=== PATIENT | male | born 1985 | race Caucasian/White ===

== ENCOUNTER 2022-03-02 12:26 | Emergency (ER) | payer SELFPAY ==
[2022-03-02] MEDS ORDERED: ZIPRASIDONE MESYLA 20 MG/VIAL IM ONE (12:43)
[2022-03-02] MEDS ORDERED: WATER FOR INJ,STERILE 10 ML ONE (12:43)
[2022-03-02] MEDS ORDERED: NA CHLORIDE 0.9% 1,000 ML ONE (14:03)
[2022-03-02 14:09] LABS: Absolute Lymphocytes (CBC) 1.4 K/uL (0.7-4.9); Hematocrit 47.7 % (39.6-49.0); Lymphocytes % 13.9 % (15.3-44.8); MPV 7.4 fL (7.6-11.3); RBC Red Blood Cell Count 5.42 M/uL (4.33-5.43)
[2022-03-02 14:48] LABS: ALT/SGPT 31 U/L (12-78); AST/SGOT 17 U/L (15-37); Albumin 3.6 g/dL (3.4-5.0); Alkaline Phosphatase 69 U/L (45-117); BUN Blood Urea Nitrogen 14 mg/dL (7-18); Bicarbonate 24 mmol/L (21-32); Bilirubin Total 0.1 mg/dL (0.2-1.0); Creatine Phosphokinase 155 U/L (39-308); Glomerular Filtration Rate 92 ml/min (=/>90); Glucose Level 109 mg/dL (74-106); Magnesium 2.2 mg/dL (1.8-2.4); Potassium 4.1 mmol/L (3.5-5.1); Protein, Total 7.3 g/dL (6.4-8.2); Sodium Level 137 mmol/L (136-145)
[2022-03-02 14:49] LABS: Troponin High Sensitivity < 3.0 pg/mL (<58.9)
[2022-03-02 15:10] LABS: Urine Blood Negative (Negative); Urine Glucose Negative (Negative); Urine Protein Negative (Negative); Urine Specific Gravity <=1.005 (1.005-1.030); Urine pH 5.5 (5.0-7.0)
[2022-03-02 15:21] LABS: Urine Mucus Slight /HPF (None Seen)
[2022-03-02 15:32] LABS: Barbiturates NEGATIVE (NEGATIVE); Benzodiazepines NEGATIVE (NEGATIVE); Cocaine NEGATIVE (NEGATIVE); METHAMPHETAM POSITIVE (NEGATIVE); Methadone NEGATIVE (NEGATIVE); Opiates NEGATIVE (NEGATIVE); Phencyclidine NEGATIVE (NEGATIVE); THC Cannibis NEGATIVE (NEGATIVE)
--- NOTE | 2022-03-02 15:43 | EDPHYS ---
Physician Documentation [facility] Name: Humberto Huerta Age: 36 yrs Sex: Male : 1985 Arrival Date: 03/02/2022 Time: 12:43 Bed 14 Private MD: ED Physician Monet Thakkar HPI: 03/02 12:54 This 36 yrs old Male presents to ER via EMS with complaints of Possible Overdose. sd2 12:54 56-year-old male presents via EMS with chief complaint of altered mental status and sd2 possible overdose. Patient is known to be HIV positive by the family but otherwise, history is limited. Family reported the patient is very secretive with them and they are unsure what the patient might of taken. The patient arrives agitated and aggressive and not wanting to answer questions. He did require physical and chemical restraints initially to prevent harm to staff. Once the patient was able to be de-escalated, he does admit to using GBL which he states is a precursor to GHB. He denies using any other drugs or alcohol.. Historical: - Allergies: 12:53 No Known Allergies; tw2 - PMHx: 12:53 HIV +; tw2 14:09 Drug abuse; tw2 - Immunization history:: Adult Immunizations. - Social history:: Smoking status: . ROS: 12:54 Unable to obtain ROS due to altered mental status. sd2 Exam: 12:54 Constitutional: This is a well developed, well nourished patient who is awake, alert, sd2 agitated and combative Head/Face: Normocephalic, atraumatic. Eyes: EOMI, normal conjunctiva bilaterally Chest/axilla: Normal chest wall appearance and motion. Nontender with no deformity. Cardiovascular: Tachycardic rate and regular rhythm with a normal S1 and S2. No gallops, murmurs, or rubs. 2+ distal pulses. Respiratory: Lungs have equal breath sounds bilaterally, clear to auscultation and percussion. No rales, rhonchi or wheezes noted. No increased work of breathing, no retractions or nasal flaring. Abdomen/GI: Soft, non-tender, with normal bowel sounds. No guarding or rebound. No evidence of tenderness throughout. Skin: Warm, dry with normal turgor. Normal color with no rashes, no lesions, and no evidence of cellulitis. MS/ Extremity: Pulses equal, no cyanosis. Neurovascular intact. Full, normal range of motion. Ambulatory without difficulty. Neuro: Awake and alert, answering some questions but overall non-cooperative. Speaking in sentences that make sense. Moves all 4 extremities with good strength. Psych: Awake, alert, agitated and combative 14:00 ECG was reviewed by the Attending Physician. NSR, rate 87, no STEMI criteria, early sd2 repolarization present Vital Signs: 12:26 BP 184 / 104; Pulse 126; Resp 19; Temp 98.1(TE); Pulse Ox 96% on R/A; tw2 12:53 Weight 68.04 kg (R); tw2 13:23 BP 131 / 82; Pulse 95; Resp 14; Pulse Ox 96% on R/A; tw2 14:05 BP 136 / 86; Pulse 74; Resp 16; Pulse Ox 100% on R/A; tw2 14:50 BP 125 / 78; Pulse 76; Resp 16; Pulse Ox 100% on R/A; tw2 15:43 BP 132 / 81; Pulse 80; Resp 16; Pulse Ox 99% on R/A; tw2 MDM: 12:45 Patient medically screened. sd2 12:54 Differential diagnosis: Ingestion/exposure to drugs/alcohol polypharmacy, over sd2 medication, hypoglycemia, closed head injury, intracranial hemorrhage, among others. Data reviewed: vital signs, nurses notes, EMS record. 15:39 Data reviewed: lab test result(s), EKG. Counseling: I had a detailed discussion with sd2 the patient and/or guardian regarding: the historical points, exam findings, and any diagnostic results supporting the discharge/admit diagnosis, lab results, the need for outpatient follow up, to return to the emergency department if symptoms worsen or persist or if there are any questions or concerns that arise at home, Drug cessation. Medical screen evaluation completed. [facility] emergency medical condition absent. ED course: Labs reviewed. Labs grossly WNCL. EKG with no acute abnormalities. UA without infection. UDS positive for amphetamines. Tox screens otherwise negative. Poison Control was contacted and recommended obs until patient returned to mental baseline. Pt is now awake, alert and oriented x4 answering all questions appropriately. Reports using GBL and has used previously but took more than normal today. Reports he does not use it often and that sometimes it does come laced with methamphetamines as well. Pt is back to his mental baseline. Family at confirms this as well and is comfortable with taking him home. He is resting comfortably with stable VS exhibiting no signs of agitation. Counseled on cessation of use and hazards of use. Verbalizes understanding of discharge plan and strict return precautions. . 03/02 12:47 Order name: CBC with Diff; Complete Time: 14:16 sd2 03/02 12:47 Order name: CMP; Complete Time: 15:07 sd2 03/02 12:47 Order name: Magnesium; Complete Time: 15:07 sd2 03/02 12:47 Order name: Troponin High Sensitivity; Complete Time: 15:07 sd03/02 12:47 Order name: Salicylate; Complete Time: 14:47 sd2 03/02 12:47 Order name: Acetaminophen; Complete Time: 15:07 sd2 03/02 12:47 Order name: Ethanol; Complete Time: 14:47 sd2 03/02 12:47 Order name: Urine Microscopic Only; Complete Time: 15:33 sd2 03/02 12:47 Order name: Urine Drug Screen; Complete Time: 15:33 sd2 03/02 12:47 Order name: CK; Complete Time: 15:07 sd2 03/02 15:10 Order name: Urine Dipstick-Ancillary; Complete Time: 15:33 EDMS 03/02 12:47 Order name: EKG - Nurse/Tech; Complete Time: 13:59 sd2 03/02 12:47 Order name: Urine Dipstick-Ancillary (obtain specimen); Complete Time: 15:11 sd2 03/02 13:20 Order name: IV Start; Complete Time: 13:59 tw2 03/02 14:00 Order name: Restraint:Violent/Self Destructive (Adult:18yo or >); Complete Time: 14:00 tw2 Administered Medications: 12:35 Drug: Geodon (ziprasidone) 20 mg Route: IM; Site: right vastus lateralis; tw2 13:10 Follow up: Response: Marked relief of symptoms tw2 14:00 Drug: NS 0.9% 1000 ml Route: IV; Rate: 1 bolus; Site: right forearm; tw2 15:00 Follow up: Response: No adverse reaction; IV Status: Completed infusion; IV Intake: tw2 1000ml Disposition: 15:45 Chart complete. sd2 Disposition Summary: 03/02/22 15:43 Discharge Ordered Location: Home sd2 Problem: new sd2 Symptoms: have improved sd2 Condition: Stable sd2 Diagnosis - Other psychoactive substance abuse, uncomplicated sd2 - Restlessness and agitation sd2 Followup: sd2 - With: Private Physician - When: 2 - 3 days - Reason: Recheck today's complaints, Continuance of care, Re-evaluation by your physician Discharge Instructions: - Discharge Summary Sheet sd2 - Substance Use Disorder sd2 - Supporting Someone With Substance Use Disorder sd2 Forms: - Medication Reconciliation Form sd2 - Thank You Letter sd2 - Antibiotic Education sd2 - Prescription Opioid Use sd2 Signatures: Dispatcher [employer] EDMS Nichole Collier RN RN tw2 Monet Thakkar MD MD sd2 Corrections: (The following items were deleted from the chart) 14:58 12:48 Head Brain Wo Cont+CT.RAD.BRZ ordered. EDMS EDMS 15:10 14:00 Kim ordered. tw2 tw2
--- NOTE | 2022-03-02 15:43 | ER ---
Nurse's Notes [facility] Name: Humberto Huerta Age: 36 yrs Sex: Male : 1985 Arrival Date: 03/02/2022 Time: 12:43 Bed 14 Private MD: Diagnosis: Other psychoactive substance abuse, uncomplicated;Restlessness and agitation Presentation: 03/02 12:26 Chief complaint: EMS states: pts mother states he possibly consumed some phenobarbital, tw2 he visits about every 2 years and is very private about his hx. HIV+. we gave narcan no changes. vs stable. Coronavirus screen: At this time, the client does not indicate any symptoms associated with coronavirus-19. Ebola Screen: Patient denies travel to an Ebola-affected area in the 21 days before illness onset. Initial Sepsis Screen: Does the patient meet any 2 criteria? HR > 90 bpm. No. Patient's initial sepsis screen is negative. Does the patient have a suspected source of infection? No. Patient's initial sepsis screen is negative. Risk Assessment: Do you want to hurt yourself or someone else? Patient reports no desire to harm self or others. Note pt combative, swinging, kicking and spitting. CODE alejandro called. charge nurse, 2 nurses, MD, nurse practitioner and 2 ems [address] pt in restraints for pt and staff safety at time. Note pt pulled IV out while actively resisting ems and moving pt, bleeding controlled via pressure dressing and coban at this time. Onset of symptoms was March 02, 2022. 12:26 Acuity: SCOT 2 tw2 12:26 Method Of Arrival: EMS: [facility] tw2 12:45 Note pt states he "took GBL 4mg the precursor to GHB". provider notified. tw2 12:56 Care prior to arrival: Medication(s) given: Normal saline infusion, 1000 mL, narcan tw2 given to pt per EMS. Triage Assessment: 12:26 General: Appears Behavior is combative, uncooperative, pt spitting and pulling at all tw2 ems monitoring devices. noted wet shorts at this time. pt appears to have urinated on himself.. 12:55 Neuro: Level of Consciousness is confused, Oriented to person. Cardiovascular: tw2 Capillary refill < 3 seconds Patient's skin is warm and dry. Respiratory: Airway is patent Trachea midline Respiratory effort is even, unlabored, Respiratory pattern is regular, symmetrical. 15:50 Pain: Denies pain. tw2 Historical: - Allergies: 12:53 No Known Allergies; tw2 - PMHx: 12:53 HIV +; tw2 14:09 Drug abuse; tw2 - Immunization history:: Adult Immunizations. - Social history:: Smoking status: . Screenin:02 Abuse screen: Denies threats or abuse. Nutritional screening: No deficits noted. tw2 Tuberculosis screening: No symptoms or risk factors identified. Fall Risk Secondary diagnosis (15 points) impaired mobility. Assessment: 12:52 Reassessment: pts sister and mother are at bedside at this time. pt is calm and tw2 answering appropriate. pt cooperative at this time. one arm restraint loosened to allow pt to use urinal at this time. family members at bedside. 12:56 Reassessment: pts mother poured pts urine down the drain at this time. tw2 13:05 Reassessment: pts sister Maddy discussing with md about pts wishes to go home and tw2 sleep it off and is oriented. 13:10 Reassessment: pt drowsy responds to sternal rub at this time, cooperative with pts tw2 sister and mother at bedside. 13:24 Reassessment: spoke with Christina watters/Poison control CASE #[id number]/ watch for WELDING MACHINE OPERATOR/TENDER and tw2 respiratory depressiong, drowsiness, hypotension, hypothermia. recommend tox labs, cath for urine for UDS, and NS fluids. observe until baseline. 13:46 Reassessment: pts sister reports "he is a republican person and take drugs daily per my tw2 other sister, not sure what all he takes". 14:08 Reassessment: Patient and/or family updated on plan of care and expected duration. Pain tw2 level reassessed. pt NAD, appears to be sleeping at this time, sister at bedside at thistime. 14:50 Reassessment: Patient and/or family updated on plan of care and expected duration. Pain tw2 level reassessed. pt appears to be sleeping at this time. 15:00 Reassessment: setting up to begin straight cath for urine sample at this time. pt tw2 states "cant i just pee in front of you", provider notified and agreeable. pt given a urinal and able to urinate at this time. Hina Kern serves as electrical installation supervisor for urine collection. 15:34 Reassessment: Patient appears in no apparent distress at this time. Patient and/or tw2 family updated on plan of care and expected duration. Pain level reassessed. pt arousable by name. 15:51 Reassessment: Patient appears in no apparent distress at this time. Patient and/or tw2 family updated on plan of care and expected duration. Pain level reassessed. Patient is alert, oriented x 3, equal unlabored respirations, skin warm/dry/pink. Overdose: 15:13 [place] Suicide Severity Screening: "In the past month, have you wished you were tw2 or wished you could go to sleep and not wake up?" Patient responds "no." "In the past month, have you actually had any thoughts of killing yourself?" Patient responds "no." "In your lifetime, have you ever done anything, started to do anything, or prepared to do anything to end your life?" Patient responds "yes." Patient reports suicidal intent occurred greater than 3 months prior. 15:16 Patient took GBL "to get high". tw2 15:17 [place] Suicide Severity Screening: "In the past month, have you wished you were tw2 or wished you could go to sleep and not wake up?" Patient responds "yes." Based off client's responses, additional C-SSRS screening questions required. 15:50 [place] Suicide Severity Screening: "In the past month, have you actually had any tw2 thoughts of killing yourself?" Patient responds "yes." Based off client's responses, additional C-SSRS screening questions required. Vital Signs: 12:26 BP 184 / 104; Pulse 126; Resp 19; Temp 98.1(TE); Pulse Ox 96% on R/A; tw2 12:53 Weight 68.04 kg (R); tw2 13:23 BP 131 / 82; Pulse 95; Resp 14; Pulse Ox 96% on R/A; tw2 14:05 BP 136 / 86; Pulse 74; Resp 16; Pulse Ox 100% on R/A; tw2 14:50 BP 125 / 78; Pulse 76; Resp 16; Pulse Ox 100% on R/A; tw2 15:43 BP 132 / 81; Pulse 80; Resp 16; Pulse Ox 99% on R/A; tw2 ED Course: 12:36 Side rails up X2. supervisor cabinetmaker on. Pulse ox on. NIBP on. tw2 12:43 Patient arrived in ED. ap3 12:44 Monet Thakkar MD is Attending Physician. sd2 12:46 Nichole Collier RN is Primary Nurse. tw2 12:46 Arm band placed on. tw2 12:52 Triage completed. tw2 13:46 Missed attempt(s): 22 gauge in right antecubital area. Bleeding controlled, band aid tw2 applied, catheter tip intact. Inserted saline lock: 20 gauge in left forearm, using aseptic technique. Blood collected. 15:11 Urine Drug Screen Sent. tw2 15:50 No provider procedures requiring assistance completed. IV discontinued, intact, tw2 bleeding controlled, No redness/swelling at site. Pressure dressing applied. Restraints: 12:26 Violent/Self Destructive Restraint: Order: obtained. Initiated March 02, 2022 at tw2 12:26 Staff present during the Initiation of Restraint: Perla Patel,GAMAL, GAMAL Castañeda, GIDEON Kaminski, 2 EMS providers, GAMAL Camacho, . Family Notification/Education: Education provided to family/significant other/legally authorized retail wireless sales representative. Observed actions/behavior: destructive, violent, severely aggressive, harming self/others, confusion/disorientation, difficulty remembering or follow instructions, impaired decision making, repeated attempts to get up from bed/chair without assistance. unable to follow instructions, rptd attempts to remove/tamper lines/tubes/IV/med devices \\T\\ wnd dressing, Less restrictive alternatives attempted: decreased environmental stimuli, placed near Nurse station, reoriented to location, family at bedside, covered lines/tubes, verbal de-escalation performed, Alternative interventions: Ineffective. Clinical justification for use: Violent/self destructing behavior impacts therapeutic environment. Poses a serious danger to physical safety of self \\T\\ others. Monitoring: Mental status: confused. Cognition: poor judgement, poor safety awareness, Impulsive, poor attention/concentration, unable to follow commands, Circulation: Within defined parameters (based on Cardiovascular assessment). Skin integrity: Within defined parameters (based on Integumentary assessment). 12:45 Violent/Self Destructive Restraint: Monitoring: Mental status: confused. Cognition: tw2 poor judgement, poor safety awareness, Impulsive, poor attention/concentration, unable to follow commands, Circulation: Within defined parameters (based on Cardiovascular assessment). Skin integrity: Within defined parameters (based on Integumentary assessment) Restraint status: Soft wrist restraint (Right) Started. Soft wrist restraint (Left) Soft ankle restraint (Right) Soft ankle restraint (Left). 13:00 Violent/Self Destructive Restraint: Monitoring: Mental status: confused. Cognition: tw2 poor judgement, poor safety awareness, Impulsive, poor attention/concentration, unable to follow commands, Circulation: Within defined parameters (based on Cardiovascular assessment). Skin integrity: Within defined parameters (based on Integumentary assessment). 13:15 Violent/Self Destructive Restraint: Monitoring: Mental status: confused. Cognition: tw2 poor judgement, poor safety awareness, Impulsive, poor attention/concentration, unable to follow commands, Circulation: Within defined parameters (based on Cardiovascular assessment). Skin integrity: Within defined parameters (based on Integumentary assessment). 13:30 Violent/Self Destructive Restraint: Monitoring: Mental status: confused. Cognition: tw2 poor judgement, poor safety awareness, Impulsive, poor attention/concentration, unable to follow commands, Circulation: Within defined parameters (based on Cardiovascular assessment). Skin integrity: Within defined parameters (based on Integumentary assessment) Range of Motion: patient asleep. Hydration/Food: patient asleep. 13:45 Violent/Self Destructive Restraint: Monitoring: Mental status: confused. Cognition: tw2 poor judgement, poor safety awareness, Impulsive, poor attention/concentration, unable to follow commands, Circulation: Within defined parameters (based on Cardiovascular assessment). Skin integrity: Within defined parameters (based on Integumentary assessment). 14:00 Violent/Self Destructive Restraint: Monitoring: Mental status: confused. Cognition: tw2 poor judgement, poor safety awareness, Impulsive, poor attention/concentration, unable to follow commands, Circulation: Within defined parameters (based on Cardiovascular assessment). Skin integrity: Within defined parameters (based on Integumentary assessment). 14:15 Violent/Self Destructive Restraint: Monitoring: Mental status: confused. Cognition: tw2 poor judgement, poor safety awareness, Impulsive, poor attention/concentration, unable to follow commands, Circulation: Within defined parameters (based on Cardiovascular assessment). Skin integrity: Within defined parameters (based on Integumentary assessment). 14:30 Violent/Self Destructive Restraint: Monitoring: Mental status: confused. Cognition: tw2 poor judgement, poor safety awareness, Impulsive, poor attention/concentration, unable to follow commands, Circulation: Within defined parameters (based on Cardiovascular assessment). Skin integrity: Within defined parameters (based on Integumentary assessment) Range of Motion: patient asleep. Hydration/Food: patient asleep. 14:45 Violent/Self Destructive Restraint: Monitoring: Mental status: confused. patient tw2 asleep, Cognition: poor judgement, poor safety awareness, Impulsive, poor attention/concentration, unable to follow commands, Circulation: Within defined parameters (based on Cardiovascular assessment). Skin integrity: Within defined parameters (based on Integumentary assessment). 15:00 Violent/Self Destructive Restraint: Readiness for Discontinue: Release criteria met. No tw2 longer exhibiting violent or self destructive behavior. Alt interventions effective. Restraint discontinuation: Discontinued at March 02, 2022 at 15:00 Effective alternative interventions: decrease environmental stimuli, placed near Nurse station, reoriented to location, covered lines/tubes, verbal de-escalation performed, pts sister and mother at bedside at this time. pt A\\T\\O, answering calmly and appropriate, pt cooperative. Administered Medications: 12:35 Drug: Geodon (ziprasidone) 20 mg Route: IM; Site: right vastus lateralis; tw2 13:10 Follow up: Response: Marked relief of symptoms tw2 14:00 Drug: NS 0.9% 1000 ml Route: IV; Rate: 1 bolus; Site: right forearm; tw2 15:00 Follow up: Response: No adverse reaction; IV Status: Completed infusion; IV Intake: tw2 1000ml Medication: 15:17 VIS not applicable for this client. tw2 Intake: 15:00 IV: 1000ml; Total: 1000ml. tw2 Outcome: 15:43 Discharge ordered by . sd2 15:50 Discharged to home ambulatory, with family. tw2 15:50 Condition: stable 15:50 Discharge instructions given to patient, family, Instructed on discharge instructions, follow up and referral plans. Demonstrated understanding of instructions, follow-up care. 15:51 Patient left the ED. tw2 Signatures: Nichole Collier RN RN tw2 Maddy Walls RN RN ap3 Monet Thakkar MD MD sd2 Corrections: (The following items were deleted from the chart) 12:56 12:26 General: Appears Behavior is combative, uncooperative, pt spitting and pulling at tw2 all ems monitoring devices. tw2 13:10 12:45 Note pt states he took GBL 4mg the precursor to GHB. provider notified. tw 15:33 14:30 Violent/Self Destructive Restraint: Monitoring: Mental status: confused. tw2
[2022-03-03 18:35] VITALS: BP 132/81; O2SAT 99
[2022-03-03 19:06] VITALS: TEMP 98.1
--- NOTE | 2022-03-04 13:42 | EKG ---
Test Date: 2022-03-02 Test Time: 13:59:16 Hoop Expander: RENETTA MEASUREMENT RESULTS: Intervals: Rate: 87 OH: 138 QRSD: 94 QT: 372 QTc: 447 [place]: P: 38 OH: 138 QRS: 77 T: 62 INTERPRETIVE STATEMENTS: Normal sinus rhythm Normal ECG No previous ECG available for comparison Electronically Signed On 03-04-22 13:39:05 CDT by uHgo Perez
== END 2022-03-02 15:51 | disposition home or self-care (01) ==
LOC: ER 12:26
DX: R45.1 Restlessness and agitation (principal); F19.10 Other psychoactive substance abuse, uncomplicated; Z21 Asymptomatic human immunodeficiency virus [HIV] infection status
CPT/HCPCS: 36415; 80053; 80307; 80320; 80329; 81003; 81015; 82550; 83735; 84484; 85025; 93005; 96360; 96372; 99285; J3486; J7030